=== PATIENT | female | born 1965 | race American Indian/Alaskan Native ===

== ENCOUNTER 2019-09-25 16:28 | Emergency (ER) | payer BC, OTHER ==
[~2019-09-25] VITALS: Ht 165.1 cm; Wt 90.7 kg
--- OUTSIDE RECORDS SUMMARY | ~2019-09-25 | XMS | Encounter Summary ---
Demographics + + + | Address | [address] | | | [place] [address] | + + + | Home Phone | | + + + | Preferred Language | Unknown | + + + | Marital Status | Unknown | + + + | Yarsani Affiliation | Unknown | + + + | Race | Unknown | + + + | Ethnic Group | Unknown | + + + Author + + + | Author | [facility] | | | and [place] | + + + | Organization | [facility] | | | and [place] | + + + | Address | Unknown | + + + | Phone | Unavailable | + + + Support + + +---------+ + | Name | Relationship | Address | Phone | + + +---------+ + | Tiagoelaine Joyce | ECON | Unknown | | + + +---------+ + Care Team Providers + +------+ + | Care Camp Cook Name | Role | Phone | + +------+ + | Neha Dhillon PA-C | PCP | | + +------+ + Encounter Details +--------+ + + + + | Date | Type | Department | Care Team | Description | +--------+ + + + + | 11/04/ | Orders Only | [facility] | Conversion | | | 2019 | | CONVERSION [address] | Transaction, | | | | | [address] | Provider Unknown | | | | | [place], [place] | [phone] | | | | | [address] | | | | | | [phone] | | | +--------+ + + + + Social History + +-------+ +--------+------+ | Tobacco Use | Types | Packs/Day | Years | Date | | | | | Used | | + +-------+ +--------+------+ | Never Assessed | | | | | + +-------+ +--------+------+ + + + | Sex Assigned at | Date Recorded | | | | + + + | Not on file | | + + + + + + + | Job Start Date | Occupation | Industry | + + + + | Not on file | Not on file | Not on file | + + + + + + + + | Travel History | Travel Start | Travel End | + + + + + + | No recent travel history available. | + + documented as of this encounter Plan of Treatment Not on filedocumented as of this encounter Visit Diagnoses Not on filedocumented in this encounter"
--- OUTSIDE RECORDS SUMMARY | ~2019-09-25 | XMS | Encounter Summary ---
Demographics + + + | Address | [address] | | | [place] [address] | + + + | Home Phone | | + + + | Preferred Language | Unknown | + + + | Marital Status | Unknown | + + + | Episcopalian Affiliation | Unknown | + + + | Race | Unknown | + + + | Ethnic Group | Unknown | + + + Author + + + | Author | [facility] | | | and [place] | + + + | Organization | [facility] | | | and [place] | + + + | Address | Unknown | + + + | Phone | Unavailable | + + + Support + + +---------+ + | Name | Relationship | Address | Phone | + + +---------+ + | Tiago Joyce | ECON | Unknown | | + + +---------+ + Care Team Providers + +------+ + | Care Tobacco Sizer Name | Role | Phone | + +------+ + PCP | Unavailable | + +------+ + Encounter Details +--------+ + + + + | Date | Type | Department | Care Team | Description | +--------+ + + + + | 06/26/ | Abstract | [facility] | [facility] MIGRATION [facility] | | | 2011 | | Conversion Location | SR | | | | | [phone] | | | +--------+ + + + [...] + + documented as of this encounter Last Filed Vital Signs + +---------+ + + | Vital Sign | Reading | Time Taken | Comments | + +---------+ + + | Blood Pressure | 143/93 | 09/19/2011 12:00 AM | | | | | PST | | + +---------+ + + | Pulse | - | - | | + +---------+ + + | Temperature | - | - | | + +---------+ + + | Respiratory Rate | - | - | | + +---------+ + + | Oxygen Saturation | - | - | | + +---------+ + + | Inhaled Oxygen | - | - | | | Concentration | | | | + +---------+ + + | Weight | - | - | | + +---------+ + + | Height | - | - | | + +---------+ + + | Body Mass Index | - | - | | + +---------+ + + documented in this encounter Plan of Treatment Not on filedocumented as of this encounter Procedures + +--------+ + + + | Procedure Name | Priori | Date/Time | Associated Diagnosis | Comments | | | ty | | | | + +--------+ + + + | PAP SMEAR | Routin | 10/27/2010 | | Results for this | | | e | 12:00 AM | | procedure are in the | | | | PST | | results section. | + +--------+ + + + | ANALIA SCREENING | Routin | 11/04/1999 | | Results for this | | BILATERAL | e | 12:00 AM | | procedure are in the | | | | PST | | results section. | + +--------+ + + + documented in this encounter Results Pap Smear (10/27/2010 12:00 AM PST) + + | Specimen | + + | | + + + + + | Narrative | Performed At | + + + | | | + + + ANALIA Screening Bilateral (11/04/1999 12:00 AM PST) + + | Specimen | + + | | + + + + + | Narrative | Performed At | + + + | | | + + + documented in this encounter Visit Diagnoses Not on filedocumented in this encounter"
--- OUTSIDE RECORDS SUMMARY | ~2019-09-25 | XMS | Encounter Summary ---
Demographics + + + | Address | [address] | | | [place] [address] | + + + | Home Phone | | + + + | Preferred Language | Unknown | + + + | Marital Status | Unknown | + + + | Hoahaoism Affiliation | Unknown | + + + | Race | Unknown | + + + | Ethnic Group | Unknown | + + + Author + + + | Author | [facility] | | | and [place] | + + + | Organization | [facility] | | | [...] Team Providers + +------+ + | Care Sales Relationship Manager Name | Role | Phone | + +------+ + PCP | Unavailable | + +------+ + Encounter Details +--------+ + + + + | Date | Type | Department | Care Team | Description | +--------+ + + + + | 01/27/ | Orders Only | [facility] | Conversion | | | 2019 | | INFECTIOUS DISEASE | Transaction, | | | | | [address] | Provider Unknown | | | | | [place], [place] | | | | | | [address] | | | | | | [phone] | | | +--------+ + + + + Social History + +-------+ +--------+------+ | Tobacco Use | Types | Packs/Day | Years | Date | | | | | Used | | + +-------+ +--------+------+ | Current Some Day | | | | | | Smoker | | | | | + +-------+ [...] | + +--------+ + + + | EXTERNAL LAB: CBC | Routin | 01/27/2019 | | Results for this | | | e | 12:00 AM | | procedure are in the | | | | PDT | | results section. | + +--------+ + + + | HEPATITIS C | Routin | 01/27/2019 | | Results for this | | RNA,QUANTITATIVE,PCR | e | 12:00 AM | | procedure are in the | | | | PDT | | results section. | + +--------+ + + + | COMPREHENSIVE | Routin | 01/27/2019 | | Results for this | | METABOLIC PANEL | e | 12:00 AM | | procedure are in the | | | | PDT | | results section. | + +--------+ + + + documented in this encounter Results Hepatitis C RNA, quantitative, PCR (01/27/2019 12:00 AM PDT) + + + + + + | Component | Value | Ref Range | Performed | Pathologist | | | | | At | Signature | + + + + + + | HCV-LOG 10 | NOT DETECTED | Log IU/ml | EXTERNAL | | | | | | LAB | | + + + + + + | HCV | NOT DETECTED | IU/ml | EXTERNAL | | | Quantitativ | | | LAB | | | e | | | | | + + + + + + + + | Specimen | + + | Blood specimen | | (specimen) | + + + +---------+ + + | Performing | Address | City/State/Zipcode | Phone Number | | Organization | | | | + +---------+ + + | EXTERNAL LAB | | | | + +---------+ + + External Lab: CBC (01/27/2019 12:00 AM PDT) + + + + + + | Component | Value | Ref Range | Performed | Pathologist | | | | | At | Signature | + + + + + + | WBC | 7.8 | 10 | EXTERNAL | | | | | | LAB | | + + + + + + | RED CELL | 5.25 (A) | 3.8 - 5.1 10 | EXTERNAL | | | COUNT | | | LAB | | + + + + + + | Hgb | 16.0 | g/dL | EXTERNAL | | | | | | LAB | | + + + + + + | Hematocrit, | 47.5 (A) | 35 - 45 % | EXTERNAL | | | POC | | | LAB | | + + + + + + | MCV | 90.6 | fL | EXTERNAL | | | | | | LAB | | + + + + + + | MCH | 30 | pg | EXTERNAL | | | | | | LAB | | + + + + + + | MCHC | 34 | g/dL | EXTERNAL | | | | | | LAB | | + + + + + + | Platelet | 227 | K/ L | EXTERNAL | | | Count | | | LAB | | | Plasma | | | | | + + + + + + | RDW-CV | 13.7 | % | EXTERNAL | | | | | | LAB | | + + + + + + | MPV | | fL | EXTERNAL | | | | | | LAB | | + + + + + + | Differentia | | | EXTERNAL | | | l Type | | | LAB | | + + + + + + | % Segmented | 62.2 | % | EXTERNAL | | | | | | LAB | | | Neutrophils | | | | | + + + + + + | % | 25.0 | % | EXTERNAL | | | Lymphocytes | | | LAB | | + + + + + + | % Monocytes | 7.2 | % | EXTERNAL | | | | | | LAB | | + + + + + + | % | 4.2 | % | EXTERNAL | | | Eosinophils | | | LAB | | + + + + + + | % Basophils | 1.4 | % | EXTERNAL | | | | | | LAB | | + + + + + + | Absolute | | / L | EXTERNAL | | | Segmented | | | LAB | | | Neutrophils | | | | | + + + + + + | Absolute | | / L | EXTERNAL | | | Lymphocytes | | | LAB | | + + + + + + | Absolute | | / L | EXTERNAL | | | Monocytes | | | LAB | | + + + + + + | Absolute | | / L | EXTERNAL | | | Eosinophils | | | LAB | | + + + + + + | Absolute | | / L | EXTERNAL | | | Basophils | | | LAB | | + + + + + + + + | Specimen | + + | Blood specimen | | (specimen) | + + + +---------+ + + | Performing | Address | City/State/Zipcode | Phone Number | | Organization | | | | + +---------+ + + | EXTERNAL LAB | | | | + +---------+ + + Comprehensive Metabolic Panel (01/27/2019 12:00 AM PDT) + + + + + + | Component | Value | Ref Range | Performed | Pathologist | | | | | At | Signature | + + + + + + | Glucose, | 102 (A) | 70 - 100 mg/dL | EXTERNAL | | | Fasting | | | LAB | | + + + + + + | BUN | 16 | mg/dL | EXTERNAL | | | | | | LAB | | + + + + + + | Creatinine | 0.68 (A) | 0.70 - 1.33 | EXTERNAL | | | | | mg/dL | LAB | | + + + + + + | BUN/Creatin | 23.5 | | EXTERNAL | | | ine Ratio | | | LAB | | + + + + + + | Calcium | 9.4 | mg/dL | EXTERNAL | | | | | | LAB | | + + + + + + | Protein, | 7.4 | g/dL | EXTERNAL | | | Total | | | LAB | | + + + + + + | Albumin | 4.2 | | EXTERNAL | | | | | | LAB | | + + + + + + | Globulin | 3.2 | | EXTERNAL | | | | | | LAB | | + + + + + + | A/G Ratio | 1.3 | | EXTERNAL | | | | | | LAB | | + + + + + + | Bilirubin | 0.5 | mg/dL | EXTERNAL | | | Total | | | LAB | | + + + + + + | ALP, | 88 | | EXTERNAL | | | External | | | LAB | | + + + + + + | ALT | 19 | U/L | EXTERNAL | | | | | | LAB | | + + + + + + | AST | 19 | U/L | EXTERNAL | | | | | | LAB | | + + + + + + | Na | 142 | mmol/L | EXTERNAL | | | | | | LAB | | + + + + + + | K | 4.2 | mmol/L | EXTERNAL | | | | | | LAB | | + + + + + + | Cl | 108 | mmol/L | EXTERNAL | | | | | | LAB | | + + + + + + | CO2 | 22 | mmol/L | EXTERNAL | | | | | | LAB | | + + + + + + | Anion Gap | 16.2 | mmol/L | EXTERNAL | | | | | | LAB | | + + + + + + | Estimated | 91 | mg/dL | EXTERNAL | | | GFR | | | LAB | | + + + + + + + + | Specimen | + + | Blood specimen | | (specimen) | + + + +---------+ + + | Performing | Address | City/State/Zipcode | Phone Number | | Organization | | | | + +---------+ + + | EXTERNAL LAB | | | | + +---------+ + + documented in this encounter Visit Diagnoses Not on filedocumented in this encounter"
--- OUTSIDE RECORDS SUMMARY | ~2019-09-25 | XMS | Clinical Summary ---
Demographics + + + | Address | [address] | | | [place] [address] | + + + | Home Phone | | + + + | Preferred Language | Unknown | + + + | Marital Status | Unknown | + + + | Rastafarian Affiliation | Unknown | + + + | Race | Unknown | + + + | Ethnic Group | Unknown | + + + Author + + + | Author | [facility] | | | and [place] | + + + | Organization | [facility] | | | and [...] Team Providers + +------+ + | Care Entomology Professor Name | Role | Phone | + +------+ + | Neha Dhillon PA-C | PCP | | + +------+ + Allergies + + + + + + | Active Allergy | Reactions | Severity | Noted | Comments | | | | | Date | | + + + + + + | Demerol | | | | | + + + + + + | Meperidine | Other (See Comments) | Medium | 11/04/19 | Veins turned red | | | | | 19 | | + + + + + + Medications + + + +---------+------+------+-------+ | Medication | Sig | Dispensed | Refills | Star | End | Statu | | | | | | t | Date | s | | | | | | Date | | | + + + +---------+------+------+-------+ | albuterol 0.63 | Inhale 1 ampule into | | 0 | | | Activ | | mg/3 mL nebulizer | the lungs. | | | | | e | | solution | | | | | | | + + + +---------+------+------+-------+ | levothyroxine | Take 137 mcg by | | 0 | | | Activ | | (SYNTHROID) 137 MCG | mouth. | | | | | e | | tablet | | | | | | | + + + +---------+------+------+-------+ Active Problems + + + | Problem | Noted Date | + + + | Chronic hepatitis C without hepatic coma | 12/04/2018 | + + + | TOBACCO USER | | + + + | VITAMIN D DEFICIENCY | | + + + | ANEMIA, IRON DEFICIENCY | | + + + | HYPOTHYROIDISM | | + + + | HEPATITIS C | | + + + | URETHRAL STRICTURE | | + + + Immunizations + + + + | Name | Administration Dates | Next Due | + + + + | HEP A/HEP B, 3 DOSE | 06/19/2018 | | | (ADULT) | | | + + + + | INFLUENZA PF | 09/13/2015 | | | QUAD(PED/ADOL/ADULT) | | | | ,PSKT or VIAL | | | + + + + | INFLUENZA QUADR | 08/16/2014 | | | W/PRES | | | | (PED/ADOL/ADULT) | | | | MULTIDOSE | | | + + + + | TD PF (2 LF TETANUS) | 02/14/2011, 02/14/2011 | | | (ADOL/ADULT) | | | + + + + | TDAP, (ADOL/ADULT) | 02/14/2011 | | + + + + Family History + + +------+ + | Medical History | Relation | Name | Comments | + + +------+ + | Diabetes, NIDDM | Mother | | | + + +------+ + | Other (see comment) | Mother | | Kidney failure | + + +------+ + + +------+--------+ + | Relation | Name | Status | Comments | + +------+--------+ + | Mother | | | | + +------+--------+ + | Mother | | | | + +------+--------+ + Social History + +-------+ +--------+------+ | [...] recent travel history available. | + + Last Filed Vital Signs + + + + + | Vital Sign | Reading | Time Taken | Comments | + + + + + | Blood Pressure | 150/94 | 06/01/2019 11:12 AM | | | | | PDT | | + + + + + | Pulse | 79 | 06/01/2019 11:12 AM | | | | | PDT | | + + + + + | Temperature | 36.3 C (97.4 F) | 06/01/2019 11:12 AM | | | | | PDT | | + + + + + | Respiratory Rate | 16 | 06/01/2019 11:12 AM | | | | | PDT | | + + + + + | Oxygen Saturation | 96% | 06/01/2019 11:12 AM | | | | | PDT | | + + + + + | Inhaled Oxygen | - | - | | | Concentration | | | | + + + + + | Weight | 94.8 kg (209 lb) | 06/01/2019 11:12 AM | | | | | PDT | | + + + + + | Height | 165.1 cm (5' 5") | 11/10/2018 1:06 PM | | | | | PST | | + + + + + | Body Mass Index | 34.78 | 11/10/2018 1:06 PM | | | | | PST | | + + + + + Plan of Treatment + + + + + | Health Maintenance | Due Date | Last Done | Comments | + + + + + | Vaccine: | | | | | Pneumococcal 19-64 | 1 | | | | (1 of 1 - PPSV23) | | | | + + + + + | Breast Cancer | | 11/04/1999 | | | Screening | 0 | | | + + + + + | Vaccine: | | 02/14/2011, 02/14/2011 | | | Dtap/Tdap/Td (1 - | 1 | | | | Tdap) | | | | + + + + + | Colorectal Cancer | | | | | Screening | 5 | | | | (Colonoscopy) | | | | + + + + + | Vaccine: Zoster (1 | | | | | of 2) | 5 | | | + + + + + | Cervical Cancer | | 10/27/2010 | | | Screening (Pap) | 6 | | | + + + + + | Vaccine: Influenza | | 09/13/2015, 08/16/2014 | | | (#1) | 9 | | | + + + + + | Hepatitis C | Completed | 06/01/2019, 05/29/2019, | | | Screening | | 05/18/2019, Additional history | | | | | exists | | + + + + + Results Not on filefrom Last 3 Months Insurance + +--------+ +--------+-------+---------+--------+ | Payer | Benefi | Subscriber | Effect | Phone | Address | Type | | | t Plan | ID | hemal | | | | | | / | | Dates | | | | | | Group | | | | | | + +--------+ +--------+-------+---------+--------+ | BCBS | BCBS | [id number] | 11/14/19 | | | PPO | | | FEDERA | | 18-Pre | | | | | | L FEP | | sent | | | | + +--------+ +--------+-------+---------+--------+ | HEALTH | IHS | [id number] | 07/24/ | | | Indemn | | SERVICE | YELLOW | | 2018-P | | | ity | | | HAWK | | resent | | | | + +--------+ +--------+-------+---------+--------+ + +--------+ +--------+ + + | Guarantor Name | Accoun | Relation to | Date | Phone | Billing Address | | | t Type | Patient | of | | | | | | | | | | + +--------+ +--------+ + + | Ashley Ramon | Person | Self | [birth year] | [address] | | | al/Fam | | 1965 | [phone] | [place] | | | [place] | | | [place] (Home) | [address] | + +--------+ +--------+ + + Advance Directives + + + + + | Type | Date Recorded | Patient | Explanation | | | | Backroom Associate | | + + + + + | Power of | | | | | Puppet Maker | | | | + + + + + | Advance | | | | | Directive | | | | + + + + +
--- OUTSIDE RECORDS SUMMARY | ~2019-09-25 | XMS | Encounter Summary ---
Demographics + + + | Address | [address] | | | [place] [address] | + + + | Home Phone | | + + + | Preferred Language | Unknown | + + + | Marital Status | Unknown | + + + | Alevism Affiliation | Unknown | + + + | Race | Unknown | + + + | Ethnic Group | Unknown | + + + Author + + + | Author | [facility] | | | and [place] | + + + | Organization | [facility] | | | [...] Team Providers + +------+ + | Care Claim Review Medical Director Name | Role | Phone | + +------+ + | Neha Dhillon PA-C | PCP | | + +------+ + Encounter Details +--------+ + + + + | Date | Type | Department | Care Team | Description | +--------+ + + + + | 05/29/ | Orders Only | [facility] | Aury Mejia | Chronic viral | | 2019 | | INFECTIOUS DISEASE | Linnea Ornopia, MD | hepatitis C (HCC) | | | | [address] | [address] | | | | | | [address] | | | | | [address] | [phone] | | | | | [phone] | | | +--------+ + + + [...] as of this encounter Plan of Treatment + +------+--------+ + + | Name | Type | Priori | Associated Diagnoses | Order Schedule | | | | ty | | | + +------+--------+ + + | Hepatitis C, | Lab | Routin | Chronic viral | Expected: | | Fibrosure Panel | | e | hepatitis C (HCC) | 11/10/2018, Expires: | | | | | | 12/15/2019 | + +------+--------+ + + | HIV 1 and 2 Ab, | Lab | Routin | Chronic viral | Expected: | | Reflex | | e | hepatitis C (HCC) | 11/10/2018, Expires: | | | | | | 11/10/2019 | + +------+--------+ + + | Hepatitis B Surface | Lab | Routin | Chronic viral | Expected: | | Ag | | e | hepatitis C (HCC) | 11/10/2018, Expires: | | | | | | 11/10/2019 | + +------+--------+ + + | Hepatitis B Core Ab, | Lab | Routin | Chronic viral | Expected: | | Total, Reflex | | e | hepatitis C (HCC) | 11/10/2018, Expires: | | | | | | 11/10/2019 | + +------+--------+ + + | Hepatitis B Surface | Lab | Routin | Chronic viral | Expected: | | Ab, Quant | | e | hepatitis C (HCC) | 11/10/2018, Expires: | | | | | | 11/10/2019 | + +------+--------+ + + | Hepatitis C Viral | Lab | Routin | Chronic viral | Expected: | | RNA NS3 | | e | hepatitis C (HCC) | 11/10/2018, Expires: | | | | | | 11/10/2019 | + +------+--------+ + + | Hepatitis Be Ag | Lab | Routin | Chronic viral | Expected: | | | | e | hepatitis C (HCC) | 11/10/2018, Expires: | | | | | | 11/10/2019 | + +------+--------+ + + | Hepatitis BE Ab | Lab | Routin | Chronic viral | Expected: | | | | e | hepatitis C (HCC) | 11/10/2018, Expires: | | | | | | 11/10/2019 | + +------+--------+ + + | Reference Lab Test | Lab | Routin | Chronic viral | Expected: | | Panel | | e | hepatitis C (HCC) | 12/04/2018, Expires: | | | | | | 12/04/2019 | + +------+--------+ + + | CBC with | Lab | Routin | Chronic viral | Expected: | | Differential | | e | hepatitis C (HCC) | 01/29/2019, Expires: | | | | | | 12/30/2019 | + +------+--------+ + + | Comprehensive | Lab | Routin | Chronic viral | Expected: | | Metabolic Panel | | e | hepatitis C (HCC) | 01/29/2019, Expires: | | | | | | 12/30/2019 | + +------+--------+ + + | Hepatitis C RNA, | Lab | Routin | Chronic viral | Expected: | | Quant, NAAT | | e | hepatitis C (HCC) | 01/29/2019, Expires: | | | | | | 12/30/2019 | + +------+--------+ + + | Hepatitis C RNA, | Lab | Routin | Chronic viral | Expected: | | Quant, NAAT | | e | hepatitis C (HCC) | 02/19/2019, Expires: | | | | | | 02/20/2020 | + +------+--------+ + + | Comprehensive | Lab | Routin | Chronic viral | Expected: | | Metabolic Panel | | e | hepatitis C (HCC) | 02/19/2019, Expires: | | | | | | 02/20/2020 | + +------+--------+ + + | CBC with | Lab | Routin | Chronic viral | Expected: | | Differential | | e | hepatitis C (HCC) | 02/19/2019, Expires: | | | | | | 02/20/2020 | + +------+--------+ + + documented as of this encounter Visit Diagnoses + + | Diagnosis | + + | Chronic viral hepatitis C (HCC) Chronic hepatitis C without mention of hepatic coma | + + documented in this encounter"
--- OUTSIDE RECORDS SUMMARY | ~2019-09-25 | XMS | Encounter Summary ---
Demographics + + + | Address | [address] | | | [place] [address] | + + + | Home Phone | | + + + | Preferred Language | Unknown | + + + | Marital Status | Unknown | + + + | Baptism Affiliation | Unknown | + + + | Race | Unknown | + + + | Ethnic Group | Unknown | + + + Author + + + | Author | [facility] | | | and [place] | + + + | Organization | [facility] | | | [...] Team Providers + +------+ + | Care Adobe Cq Developer Name | Role | Phone | + +------+ + | Neha Dhillon PA-C | PCP | | + +------+ + Encounter Details +--------+ + + + + | Date | Type | Department | Care Team | Description | +--------+ + + + + | 02/09/ | Orders Only | [facility] | Conversion | | | 2019 | | CONVERSION [address] | Transaction, | | | | [address] | Provider Unknown | | | | | [place], [place] | [phone] | | | | | [address] | | | | | | [phone] | | | +--------+ + + + [...]
--- OUTSIDE RECORDS SUMMARY | ~2019-09-25 | XMS | Encounter Summary ---
Demographics + + + | Address | [address] | | | [place] [address] | + + + | Home Phone | | + + + | Preferred Language | Unknown | + + + | Marital Status | Unknown | + + + | Nondenominational Affiliation | Unknown | + + + | Race | Unknown | + + + | Ethnic Group | Unknown | + + + Author + + + | Author | [facility] | | | and [place] | + + + | Organization | [facility] | | | and [...] Team Providers + +------+ + | Care Application Trainer Name | Role | Phone | + +------+ + | Neha Dhillon PA-C | PCP | | + +------+ + Reason for Visit + + + | Reason | Comments | + + + | Follow-up | Hep C Post TX | + + + Encounter Details +--------+---------+ + + + | Date | Type | Department | Care Team | Description | +--------+---------+ + + + | 06/01/ | Office | [facility] | Aury Mejia | Chronic hepatitis C | | 2019 | Visit | INFECTIOUS DISEASE | Linnea Tsang MD | without hepatic coma | | | | [address] | [address] | (HCC) (Primary Dx) | | | | [place], [place] | [place] [address] | | | | | [address] | [phone] | | | | | [phone] | | | +--------+---------+ + + + Social History + +-------+ [...] this encounter Last Filed Vital Signs + + + [...] + + + + | Height | - | - | | + + + + + | Body Mass Index | 34.78 | 11/10/2018 1:06 PM | | | | | PST | | + + + + + documented in this encounter Patient Instructions Patient Instructions Aury Mejia MD - 06/01/2019 11:00 AM PDTContinue heal thy lifestyle; Continue quit smoking Follow up as needed 11 :29 AM PDT documented in this encounter Progress Notes Aury Mejia MD - 06/01/2019 11:00 AM PDTFormatting of this note might be d ifferent from the original. [facility] Service: Infectious Diseases Outpatient Follow Up Note CHIEF COMPLAINT Follow up on Hepatitis C, genotype 3 Briefly: The patient is a 53 y.o.-year-old female with significant PMH of hepatitis C. Patient was diagnosed in 2003 with a risk factor of IV drug use from to 2008. She has genotype 3. She was referred [address] Swift. His notes at that time stated a fiber sure F1 to 2. She was prescribed daklinza and sofosbuvir. However, her insurance did not approve the medications that she was essentially not treated. She desires to start treatment now that s he has insurance. She denies any history of liver decompensation. No jaundice. She has be en clean since 2008 and is also trying to quit smoking. HISTORY OF PRESENT ILLNESS The patient is a 54 y.o.-year-old female presenting today for follow. She completed 2 colleen hs of [employer] in February. She has been excited about her "new lease on life." She continues to cut back on her smoking and is down to 4 cigarettes a day. She continues to exercise and h as lost some weight as well. PAST MEDICAL HISTORY Patient Active Problem List Diagnosis Chronic hepatitis C without hepatic coma TOBACCO USER VITAMIN D DEFICIENCY ANEMIA, IRON DEFICIENCY HYPOTHYROIDISM HEPATITIS C URETHRAL STRICTURE PAST SURGICAL HISTORY Past Surgical History: Procedure Laterality Date APPENDECTOMY ENDOMETRIAL BIOPSY HYSTERECTOMY OTHER SURGICAL HISTORY TONSILLECTOMY AND ADENOIDECTOMY SOCIAL HISTORY Social History Socioeconomic History Marital status: Unknown Spouse name: Not on file Number of children: Not on file Years of education: Not on file Highest education level: Not on file Social Needs Financial resource strain: Not on file Food insecurity - worry: Not on file Food insecurity - inability: Not on file Transportation needs - medical: Not on file Transportation needs - non-medical: Not on file Occupational History Not on file Tobacco Use Smoking status: Current Some Day Smoker Substance and Sexual Activity Alcohol use: Not on file Drug use: Not on file Sexual activity: Not on file Other Topics Concern Not on file Social History Narrative Not on file FAM. HISTORY Family History Problem Relation Age of Onset Other (see comment) Mother Kidney failure Diabetes, NIDDM Mother MEDICATIONS Current Outpatient Medications: albuterol 0.63 mg/3 mL nebulizer solution, Inhale 1 ampule into the lungs., Disp: , Rf l: levothyroxine (SYNTHROID) 137 MCG tablet, Take 137 mcg by mouth., Disp: , Rfl: Allergies Allergen Reactions Meperidine Other (See Comments) Veins turned red Other reaction(s): Red Man Syndrome Veins turned red Demerol REVIEW OF SYSTEMS Negative except for pertinent items noted in HPI. PHYSICAL EXAM Vital Signs: BP (!) 150/94 | Pulse 79 | Temp 36.3 C (97.4 F) (Oral) | Resp 16 | Wt 94.8 kg (209 lb) | SpO2 96% | BMI 34.78 kg/m General Appearance: HEENT: Alert, cooperative, no distress Head normocephalic and atraumatic EEOMI; no scleral icterus Lungs: Clear to auscultation bilaterally, respirations unlabored Heart:: Regular rate and rhythm, S1 and S2 normal, no rub or gallop Neuro: Attends appropriately; no CN deficits Extremities: Extremities normal, no cyanosis or edema REVIEW OF LABS: All labs were reviewed. Comprehensive metabolic panel Order: [id number] Status: Final result Visible to patient: No (Not Released) Next appt: None Ref Range & Units 05/18/19 0746 Flag GLUCOSE 70 - 100 mg/dL 105 A BUN 6 - 23 mg/dL 11 CREATININE 0.70 - 1.33 mg/dL 0.58 A BUN/CREAT 6.0 - 28.6 19.0 CALCIUM 8.5 - 10.3 mg/dL 9.4 TOTAL PROTEIN 6.0 - 8.3 g/dL 7.1 Albumin 3.5 - 5.0 4.1 GLOBULIN 1.8 - 3.5 3.0 A/G 1.1 - 2.4 1.4 TBIL 0.0 - 1.2 mg/dL 0.6 ALK PHOS 31 - 130 98 ALT 7 - 52 U/L 17 AST 13 - 39 U/L 18 SODIUM 132 - 143 mmol/L 141 POTASSIUM 3.6 - 5.1 mmol/L 4.6 CHLORIDE 95 - 112 mmol/L 109 CO2 19 - 31 mmol/L 22 ANION GAP AGAP 7 - 21 mmol/L 14.6 EGFR mg/dL 108 Resulting Agency [facility] Specimen Collected: 05/18/19 07:46 Last Resulted: 05/18/19 17:39 Lab Flowsheet Order Detail s View Encounter Lab and Collection Details Routing Result History CBC W/Auto Diff (Reflex to Manual) Order: [id number] Status: Final result Visible to patient: No (Not Released) Next appt: None Ref Range & Units 05/18/19 0746 Flag WBC 4.5 - 11.0 10^3/mL 7.9 RBC 3.8 - 5.1 10^6/L 5.29 A HGB 12.0 - 16.0 g/dL 16.3 A HCT 35 - 45 % 47.8 A MCV 81 - 99 fL 90.3 MCH 27 - 33 pg 31 MCHC 30 - 36 g/dL 34 PLT 140 - 440 K/L 214 RDW SD 10.5 - 15.0 % 13.8 MPV fL 0 DIFF TYPE Auto NEUTROPHILS 39 - 80 % 63.7 LYMPHOCYTES 24 - 44 % 24.8 MONOCYTES 0 - 12 % 6.7 EOSINOPHILS 0 - 6 % 3.8 BASOPHILS 0 - 2 % 1.0 NEUTROPHILS ABS /L 0 LYMPHOCYTES ABS /L 0 MONOCYTES ABS /L 0 EOSINOPHILS ABS /L 0 BASOPHILS ABS /L 0 Resulting Agency [facility] Specimen Collected: 05/18/19 07:46 Last Resulted: 05/18/19 17:39 Lab Flowsheet Order Detail s View Encounter Lab and Collection Details Routing Result History HCV RNA quant by PCR Order: [id number] Status: Final result Visible to patient: No (Not Released) Next appt: None Ref Range & Units 05/18/19 0746 HCV RNA VIRAL LOAD Log IU/ml NOT DETECTED HCV RNA VIRAL LOAD IU/ml NOT DETECTED Resulting Agency [facility] Specimen Collected: 05/18/19 07:46 Last Resulted: 05/18/19 17:39 Lab Flowsheet Order Detail s View Encounter Lab and Collection Details Routing Result History ASSESSMENT AND RECOMMENDATIONS The patient is a 54 y.o.-year-old female with the following problems: Ashley was seen today for follow-up. Diagnoses and all orders for this visit: Chronic hepatitis C without hepatic coma (HCC) Patient completed 2 months of [facility] at and has sustained viral response 12 weeks after deandre tment which is indicative of a cure. We discussed with patient that she could still potentially acquire hepatitis C, but she ass ures me that she continues to remain sober and will celebrate 10 years of sobriety in [facility] er. Follow-up as needed Thank you for allowing us to participate in this patient's care. A return visit has been re quested/scheduled in PRN for routine clinical follow up. The patient was instructed to call our clinic for any questions, and for any concerns regarding worsening symptoms, including f dianna/chills/side effects from medication, especially diarrhea. We will see the patient soon er than the recommended follow up date, if with any worsening of symptoms. Dictation software, [employer], used which may contain error for similar sounding words even af ter review. Personal communication requested for any clarification. Portions of this chart may have been copied from previous notes for continuity of care purp ose Aury Mejia MD Infectious Diseases [facility] [address] [place] [address] O: F: 06/01/2019 documente d in this encounter Plan of Treatment Not on filedocumented as of this encounter Visit Diagnoses + + | Diagnosis | + + | Chronic hepatitis C without hepatic coma (HCC) - Primary | + + documented in this encounter
--- OUTSIDE RECORDS SUMMARY | ~2019-09-25 | XMS | Clinical Summary ---
Demographics + + + | Address | [address] | | | [place] [address] | + + + | Home Phone | | + + + | Preferred Language | Unknown | + + + | Marital Status | Unknown | + + + | Amish Affiliation | Unknown | + + + | Race | Unknown | + + + | Ethnic Group | Unknown | + + + Author + + + | Author | [facility] (Historical as of | | | 05-30-19) | + + + | Organization | [facility] [employer] (Historical as of | | | 05-30-19) | + + + | Address | Unknown | + + + | Phone | Unavailable | + + + Support + + +---------+ + | Name | Relationship | Address | Phone | + + +---------+ + | Tiago Joyce | ECON | Unknown | | + + +---------+ + Care Team Providers + +------+ + | Care Corn Detasseler Name | Role | Phone | + +------+ + | Neha Dhillon PA-C | PP | | + +------+ + Allergies + + + + + + | Active Allergy | Reactions | Severity | Noted | Comments | | | | | Date | | + + + + + + | Meperidine | Other (See | Medium | 11/04/19 | Veins turned red | | | Comments), Red Man | | 19 | | | | Syndrome | | | | + + + + + + Current Medications + + +--------+---------+------+------+-------+ | Prescription | Sig. | Disp. | Refills | Star | End | Statu | | | | | | t | Date | s | | | | | | Date | | | + + +--------+---------+------+------+-------+ | albuterol | Inhale 2 puffs into | | | | | Activ | | (PROVENTIL | the lungs every 4 | | | | | e | | HFA;VENTOLIN HFA) | (four) hours as | | | | | | | 108 (90 Base) | needed for Wheezing. | | | | | | | MCG/ACT inhaler | | | | | | | + + +--------+---------+------+------+-------+ | albuterol | Take 1 ampule by | | | | | Activ | | (ACCUNEB) 0.63 | nebulization every 6 | | | | | e | | MG/3ML nebulizer | (six) hours as | | | | | | | solution | needed for Wheezing. | | | | | | + + +--------+---------+------+------+-------+ | Cholecalciferol | Take 1 capsule by | | | | | Activ | | 2000 units | mouth daily. | | | | | e | | CAPSIndications: | (Vitamin D3) | | | | | | | Vitamin D3 | | | | | | | + + +--------+---------+------+------+-------+ | levothyroxine | Take 137 mcg by | | | | | Activ | | (SYNTHROID) 137 MCG | mouth daily. | | | | | e | | tablet | | | | | | | + + +--------+---------+------+------+-------+ | nicotine (NICODERM | Place 1 patch onto | | | | | Activ | | CQ) 14 | the skin daily. | | | | | e | | MG/24HRIndications: | | | | | | | | Nicotine Dependence | | | | | | | + + +--------+---------+------+------+-------+ | MAVYRET 100-40 MG | TAKE 3 TABLETS BY | 84 | PRN | 01/13 | | Activ | | TABS | MOUTH EVERY DAY | tablet | | 07/03 | | e | | | | | | 19 | | | + + +--------+---------+------+------+-------+ Active Problems + + + | Problem | Noted Date | + + + | Chronic hepatitis C without hepatic coma (HCC) | 12/04/2018 | + + + Immunizations + + + + | Name | Dates Previously Given | Next Due | + + + + | INFLUENZA PF, | 09/13/2015 | | | QUADRIVALENT | | | | (PED/ADOL/ADULT) | | | + + + + | Td W/o Preservative | 02/14/2011 | | | (Adol/adult) | | | + + + + Family History + + +------+ + | Medical History | Relation | Name | Comments | + + +------+ + | Diabetes type II | Mother | | | + + +------+ + | Kidney failure | Mother | | | + + +------+ + + +------+--------+ [...] | | | + +-------+ +--------+------+ + +---+---+---+ | Smokeless Tobacco: | | | | | Never Used | | | | + +---+---+---+ + + + | Sex Assigned at | Date Recorded | | | | + + + | Not on file | | + + + Last Filed Vital Signs + + + + | Vital Sign | Reading | Time Taken | + + + + | Blood Pressure | 142/101 | 02/19/2019 2:24 PM PDT | + + + + | Pulse | 60 | 02/19/2019 2:24 PM PDT | + + + + | Temperature | 36.1 C (97 F) | 02/19/2019 2:24 PM PDT | + + + + | Respiratory Rate | 16 | 02/19/2019 2:24 PM PDT | + + + + | Oxygen Saturation | 95% | 02/19/2019 2:24 PM PDT | + + + + | Inhaled Oxygen | - | - | | Concentration | | | + + + + | Weight | 98.4 kg (217 lb) | 02/19/2019 2:24 PM PDT | + + + + | Height | 165.1 cm (5' 5") | 11/10/2018 1:02 PM PST | + + + + | Body Mass Index | 36.11 | 02/19/2019 2:24 PM PDT | + + + + Plan of Treatment + + + + + | Health Maintenance | Due Date | Last Done | Comments | + + + + + | Vaccine: | | | | | Pneumococcal 19-64 | 4 | | | | (PPSV23 only) Medium | | | | | Risk (1 of 1 - | | | | | PPSV23) | | | | + + + + + | Cervical Cancer | | | | | Screening (Pap) | 5 | | | + + + + + | Vaccine: | | 02/14/2011 | | | Dtap/Tdap/Td (1 - | 1 | | | | Tdap) | | | | + + + + + | Breast Cancer | | | | | Screening | 5 | | | | (Mammogram) | | | | + + + + + | Colon Cancer | | | | | Screening | 5 | | | | (Colonoscopy) | | | | + + + + + | Vaccine: Zoster (1 | | | | | of 2) | 5 | | | + + + + + | Vaccine: Influenza | | 09/13/2015 | | | (#1) | 9 | | | + + + + + Results Not on filefrom Last 3 Months Insurance + +--------+ +------+-------+---------+ | Payer | Benefi | Subscriber | Type | Phone | Address | | | t Plan | ID | | | | | | / | | | | | | | Group | | | | | + +--------+ +------+-------+---------+ | [employer] | BLUE | [id number] | | | | | | CROSS | | | | | | | BLUE | | | | | | | SHIELD | | | | | | | FEP | | | | | + +--------+ +------+-------+---------+ | [employer] | YELLOW | [id number] | | | | | PLANS | [place] | | | | | + +--------+ +------+-------+---------+ + +--------+ +--------+ + + | Guarantor Name | Accoun | Relation to | Date | Phone | Billing Address | | | t Type | Patient | of | | | | | | | | | | + +--------+ +--------+ + + | TONIO FAYE | Person | Self [birth year] | Home: | [address] | | | al/Fam | | 1965 | [phone] [place] | | | [place] | | | [phone] | [phone] | + +--------+ +--------+ + +
[~2019-09-25 16:28] MED LIST: NORCO 5-325 TA1 EACH PO; PROTONIX40 MG PO; ZOFRAN ODT8 MG PO
[2019-09-25] MEDS ORDERED: LEVOTHYROXINE137 MCG PO (16:55)
[2019-09-25] MEDS ORDERED: INDOMETHACIN50 MG PO (19:05)
[2019-09-25] MEDS ORDERED: CIPRO500 MG PO (19:05)
== END 2019-09-25 19:17 | disposition home or self-care (01) ==
LOC: ED 16:28
DX: R10.31 Right lower quadrant pain (principal); F17.200 Nicotine dependence, unspecified, uncomplicated; Z88.8 Allergy status to other drugs, medicaments and biological substances; Z79.899 Other long term (current) drug therapy
CPT/HCPCS: 36415; 80053; 81001; 85025; 96372; 99284; J1885

== ENCOUNTER 2023-08-23 09:32 | Day surgery (SDC) | payer BC, OTHER ==
[~2023-08-23] VITALS: Ht 165.1 cm; Wt 124.0 kg
[~2023-08-23 09:32] MED LIST changes: +CIPRO500 MG PO; +COZAAR25 MG PO; +INDOMETHACIN50 MG PO; +LEVOTHYROXINE137 MCG PO
[2023-08-23 09:48] VITALS: BP 136/87
--- NOTE | 2023-08-23 11:27 | NUR ---
08/23/23 1127 Adore Vaca PT TO PACU ALERT AND AWAKE DENIES PAIN AND NAUSEA.
[2023-08-23 11:49] VITALS: BP 122/84
--- NOTE | 2023-08-24 15:47 | OR ---
[facility] [address], [place] [address] Signed DATE OF OPERATION: 08/23/2023 SURGEON: Tyesha Mederos MD PREOPERATIVE DIAGNOSIS: Colon screening. POSTOPERATIVE DIAGNOSES: 1. Sigmoid diverticulosis. 2. Polyps x4 (hepatic flexure 40 cm and 20 cm). PROCEDURE: Total colonoscopy to the cecum with cold snare polypectomy x1 and cold morcellation polypectomy x3. ANESTHESIA: Intravenous sedation, fentanyl 200 mcg and Versed 7 mg. INDICATION: This 58-year-old [place]ien woman is a patient of Dr. Irvin at [facility]. She is referred for colon screening. She does have history of colonoscopy in the past, which showed hyperplastic changes of the rectum. She has no current symptoms of bleeding, diarrhea or constipation. She is known to me from the past having undergone cholecystectomy and liver biopsy in 2003 as well as upper endoscopy in 2004. She understands the risk of screening colonoscopy, which includes, but is not limited to bleeding, infection, and perforation. FINDINGS: The prep was good. Complete colonoscopy was undertaken of the cecum. She had numerous diverticula of the sigmoid and left colon. There is a polyp at the hepatic flexure, which was excised and two polyps at 40 cm and one polyp at 20 cm all excised completely. DESCRIPTION OF PROCEDURE: The patient was brought to the endoscopy suite and placed in the lateral decubitus position, given intravenous sedation to the point of slurred speech and nystagmus. Digital rectal examination was normal. An Olympus video colonoscope was passed in the rectum and manipulated through the sigmoid which showed numerous diverticula. This was somewhat uncomfortable and therefore additional sedation was given as needed. Scope was ultimately advanced to the Electronically Signed By: TYESHA MEDEROS MD 08/24/23 1547 PATIENT NAME: TONIO FAYE OPERATIVE REPORT DATE OF : 65 REPORT #: [id number] PHYSICIAN: TYESHA MEDEROS MD PCP: SANJAY IRVIN MD REPORT IS CONFIDENTIAL AND NOT TO BE RELEASED WITHOUT AUTHORIZATION [facility] [address], [place] [address] Signed cecum. The ileocecal valve and appendiceal orifice were normal. The scope was withdrawn from that point and at the hepatic flexure there was a sessile probably adenomatous polyp, which was excised with cold morcellation technique. Further withdrawal showed diverticula once again in the left colon. At 40 cm, two small polyps were noted adjacent to each other, both excised with cold morcellation technique. Further withdrawal confirmed dense diverticular changes at the sigmoid. At 20 cm from the anal verge, there was a sessile polyp, which was excised with cold snare technique. Further withdrawal allowed for retroflexed view of the rectum, which was normal. Scope was removed and the patient was taken to the recovery room in good condition. CONCLUDING DIAGNOSIS: Polyps x4. PLAN: Recommend repeat colonoscopy in 2 to 3 years, sooner if symptoms should develop. Recommend high-fiber diet based on her diverticula. She will return to the ongoing care of Dr. Irvin at [facility]. MD JENS Matthews/AVERY /[id number] cc: Sanjay Irvin MD Copies: SANJAY IRVIN MD ~ Electronically Signed By: TYESHA MEDEROS MD 08/24/23 1547 PATIENT NAME: FAYETONIO OPERATIVE REPORT DATE OF : 65 REPORT #: [id number] PHYSICIAN: TYESHA MEDEROS MD PCP: SANJAY IRVIN MD REPORT IS CONFIDENTIAL AND NOT TO BE RELEASED WITHOUT AUTHORIZATION
== END 2023-08-23 12:10 | disposition home or self-care (01) ==
LOC: OPS 09:32 → DS 09:36 → OPS 11:00 → DS 12:15 → OPS 12:15 → DS 13:00
PROVIDERS: ATTEND Surgery
PROC: 0DBN8ZZ Excision of Sigmoid Colon, Via Natural or Artificial Opening Endoscopic (ICD-10-PCS; 2023-08-23)
PROC: 0DBQ8ZZ Excision of Anus, Via Natural or Artificial Opening Endoscopic (ICD-10-PCS; principal; 2023-08-23 11:00)
DX: Z12.11 Encounter for screening for malignant neoplasm of colon (principal); D12.3 Benign neoplasm of transverse colon; D12.6 Benign neoplasm of colon, unspecified; K57.30 Diverticulosis of large intestine without perforation or abscess without bleeding; K63.5 Polyp of colon; E03.9 Hypothyroidism, unspecified; I10 Essential (primary) hypertension; E66.9 Obesity, unspecified; Z68.36 Body mass index [BMI] 36.0-36.9, adult; F15.21 Other stimulant dependence, in remission
CPT/HCPCS: 99153; G0500; J2250; J3010